=== PATIENT | male | born 2000 | race Caucasian/White ===

== ENCOUNTER 2019-08-19 08:48 | Emergency (ER) | payer OTHER ==
[~2019-08-19] VITALS: Ht 188 cm; Wt 68.0 kg
[2019-08-19 10:01] VITALS: Ht 188 cm; Wt 68.0 kg
[2019-08-19 13:57] VITALS: BP 120/71
== END 2019-08-19 13:57 | disposition home or self-care (01) ==
LOC: ED 08:48
DX: L02.215 Cutaneous abscess of perineum (principal)
CPT/HCPCS: J2001

== ENCOUNTER 2019-09-05 22:34 | Emergency (ER) | payer OTHER ==
[~2019-09-05] VITALS: Ht 188 cm; Wt 72.7 kg
[2019-09-05 22:38] VITALS: BP 139/59; Ht 188 cm; Wt 72.7 kg
== END 2019-09-05 23:46 | disposition home or self-care (01) ==
LOC: ED 22:34
DX: F41.9 Anxiety disorder, unspecified (principal)
CPT/HCPCS: Q0092

== ENCOUNTER 2019-09-06 22:13 | Emergency (ER) | payer OTHER ==
[~2019-09-06] VITALS: Ht 157.5 cm; Wt 72.1 kg
[2019-09-06 22:43] VITALS: Ht 157.5 cm; Wt 72.1 kg
[2019-09-07 00:29] VITALS: BP 104/63
== END 2019-09-07 00:30 | disposition home or self-care (01) ==
LOC: ED 22:13
DX: R07.89 Other chest pain (principal); R00.2 Palpitations